=== PATIENT | male | born 1990 | race Caucasian/White ===

== ENCOUNTER 2018-03-15 10:07 | Day surgery (SDC) | payer OTHER ==
[~2018-03-15 10:07] MED LIST: CEFAZOLIN 1 GM INJ; DEXAMETHASONE 4 MG/ML 1 ML INJ; ONDANSETRON 4 MG INJ
[2018-03-15] MEDS ORDERED: FENTAnyl 50 MCG/ML VIAL (11:17)
[2018-03-15] MEDS ORDERED: METOCLOPRAMIDE 10 MG INJ (11:17)
[2018-03-15] MEDS ORDERED: LIDOCAINE 2% (SDV) 5 ML INJ (11:18)
[2018-03-15] MEDS ORDERED: PROPOFOL 20 ML (11:18)
[2018-03-15] MEDS ORDERED: MIDAZOLAM 1 MG/ML 2 ML INJ (11:19)
[2018-03-15] MEDS ORDERED: CEFAZOLIN 2 GM/50 ML (PMX) 50 ML IVPB (13:00)
[2018-03-15] MEDS: IOHEXOL 300MG/ML 30 ML BTL (13:09)
[2018-03-15] MEDS ORDERED: HYDROmorphONE (0.2 MG/ML) 10ML SYG IV ×2 (13:30)
[2018-03-15] MEDS ORDERED: FENTAnyl 50 MCG/ML VIAL IV ×2 (13:30)
[2018-03-15] MEDS ORDERED: MEPERIDINE 25 MG INJ IV (13:30)
[2018-03-15] MEDS ORDERED: DIPHENHYDRAMINE 50 MG INJ IV (13:30)
[2018-03-15] MEDS ORDERED: ONDANSETRON 4 MG INJ IV (13:30)
[2018-03-15] MEDS ORDERED: HYDROCODONE/APAP (5/325) TAB PO (14:00)
== END 2018-03-15 14:40 | disposition home or self-care (01) ==
LOC: SDS 10:07
DX: R31.0 Gross hematuria (principal); F14.90 Cocaine use, unspecified, uncomplicated
CPT/HCPCS: 52005; 74430